=== PATIENT | male | born 1985 | race African-American/Black ===

== ENCOUNTER 2022-11-14 06:16 | Emergency (ER) | payer MEDICAID ==
[~2022-11-14] VITALS: Ht 198.1 cm; Wt 120.0 kg
[2022-11-14 06:32] VITALS: BP 125/73
[2022-11-14] MEDS ORDERED: TOPUD PO (07:48)
[2022-11-14] MEDS ORDERED: AMOX-494 PO (07:48)
[2022-11-14] MEDS ORDERED: KETOROLAC 60MG/2ML VIAL IM ONE (08:00)
== END 2022-11-14 08:11 | disposition home or self-care (01) ==
LOC: ER 06:23
DX: J02.9 Acute pharyngitis, unspecified (principal)
CPT/HCPCS: 99283; J1885